=== PATIENT | female | born 1930 | race Caucasian/White ===

== ENCOUNTER → 2019-04-11 | Outpatient (CLI) | payer MEDICARE | END | disposition home or self-care (01) | LOC: SHCH 12:43 | PROVIDERS: ATTEND Internal Medicine Cardiovascular Disease | DX: I50.32 Chronic diastolic (congestive) heart failure (principal); I42.9 Cardiomyopathy, unspecified; Z95.3 Presence of xenogenic heart valve | CPT/HCPCS: 93306 ==